=== PATIENT | male | born 1980 | race Asian ===

== ENCOUNTER 2020-05-07 10:38 | Outpatient (REF) | payer OTHER, SELFPAY ==
[2020-05-07 11:07] LABS: COVID-19 Test Negative (Negative)
== END 2020-05-07 10:39 | disposition home or self-care (01) ==
LOC: HO.LAB 10:38
PROVIDERS: Visit Provider Internal Medicine
DX: Z20.828 Contact with and (suspected) exposure to other viral communicable diseases (principal)
CPT/HCPCS: 87635

== ENCOUNTER 2020-06-04 11:35 | Outpatient (REF) | payer SELFPAY | END 2020-06-04 11:36 | disposition home or self-care (01) | LOC: HO.LAB 11:35 | PROVIDERS: Visit Provider Internal Medicine | DX: Z20.828 Contact with and (suspected) exposure to other viral communicable diseases (principal) | CPT/HCPCS: C9803; U0003 ==

== ENCOUNTER 2023-10-18 15:45 | Emergency (ER) | payer OTHER, SELFPAY ==
--- NOTE | ~2023-10-18 | XR_ITS ---
EXAMINATION: XR CHEST CLINICAL INFORMATION: Cough. COMPARISON: Chest radiograph dated 04/24/2016. TECHNIQUE: 2 views of the chest were obtained. FINDINGS: Heart is normal in size. The lungs are clear. There is no pleural effusion. No pneumothorax. No acute osseous abnormality. XR/XR chest 2V IMPRESSION: No acute cardiopulmonary disease.
[2023-10-18 15:57] VITALS: BP 137/94; PULSE 100; O2SAT 98
[2023-10-18 16:08] VITALS: BP 101/66; PULSE 101; RESP 20; TEMP 36.6; O2SAT 97; BMI 29.8
--- NOTE | 2023-10-18 16:08 | ED_ITS ---
HPI - General Adult General Chief complaint: Upper Respiratory Symptoms Stated complaint: flu-like symptoms x1day, feels saint x20 mins Time Seen by Provider: 10/18/23 18:21 Source: patient Mode of arrival: ambulatory Limitations: no limitations History of Present Illness HPI narrative: Patient is a 42 year old assigned male at with no reported medical history presenting to the emergency department today feeling generally unwell. Patient states that his daughter has been sick with influenza and today he began to feel unwell with a cough and sore throat. Patient denies any dizziness, lightheadedness, abdominal pain, nausea, vomiting, fever, chills, blurry vision, double vision, loss of vision, chest pain, difficulty breathing, shortness of breath, back pain, night sweats, pain with urination, increased urinary frequency, increased urinary urgency, blood in his urine or stool, syncope or a near syncopal episode, recent trauma or falls, bowel incontinence, bladder incontinence, bowel retention, bladder retention, or any other complaints at this time. Onset (ago): hour(s) Severity: mild Relieving factors: none Exacerbating factors: none Associated symptoms: cough Treatments prior to arrival: none Related Data Previous Rx's Medication Instructions Recorded famotidine 20 mg tablet 20 mg PO DAILY 7 days #7 tabs 02/17/21 prednisone 20 mg tablet 20 mg PO DAILY 9 days #18 tabs 02/17/21 oseltamivir 75 mg capsule (Tamiflu) 75 mg PO DAILY 5 days #5 caps 10/18/23 Allergies Allergy/AdvReac Type Severity Reaction Status Date / Time No Known Allergies Allergy Unverified 04/11/20 18:27 Review of Systems Constitutional: Constitutional: Reports no additional constitutional complaints, Denies chills, Denies fever(s) and Denies night sweats Eyes: Eyes: Reports no additional eye complaints, Denies blurry vision, Denies change in vision, Denies diplopia, Denies eye discharge, Denies loss of vision and Denies eye pain ENT: Denies dizziness and Reports sore throat Cardiovascular: Cardiovascular: Reports no additional cardiovascular complaints, Denies chest pain, Denies lightheadedness, Denies Loss of Consciousness and Denies dyspnea Respiratory: Respiratory: Reports no additional respiratory complaints, Reports cough and Denies dyspnea Gastrointestinal: Gastrointestinal: Reports no additional gastrointestinal complaints, Denies abdominal pain, Denies melena, Denies hematochezia, Denies change in bowel habits and Denies change in stool character Genitourinary: Genitourinary: Reports no additional male genitourinary complaints, Denies hematuria, Denies oliguria, Denies difficulty urinating, Denies dysuria, Denies urinary frequency, Denies urinary hesitancy, Denies urinary incontinence and Denies urinary urgency Musculoskeletal: Musculoskeletal: Reports no additional musculoskeletal complaints, Denies numbness and Denies tingling Neurologic: Denies dizziness, Denies loss of vision, Denies numbness and Denies tingling Psychiatric: Psychiatric: Reports no additional psychiatric complaints Endocrine: Endocrine: Reports no additional endocrine complaints Hematologic/Lymphatic: Hematologic/Lymphatic: Reports no additional hematologic/lymphatic complaints Allergic/Immunologic: Allergic/Immunologic: Reports no additional allergic/immunologic complaints PMFSH Past Medical History Attestation statement: The following information was validated with the patient. Source: old records reviewed and nursing notes reviewed Social History Social History Advance Directives: No Advance Directives Information Provided: No Physical Exam ED Vital Signs: Vital Signs - 24 hr 10/18/23 16:08 Temperature 97.9 F Pulse Rate 101 H Respiratory Rate 20 Blood Pressure 101/66 Pulse Oximetry 97 Oxygen Delivery Method Room Air BMI result Body Mass Index 29.8 Const General: cooperative, no acute distress, alert and awake Nutritional Appearance: well nourished Orientation/consciousness: patient oriented x3 Limitations: no limitations HENMT Head: Yes normal to inspection and Yes atraumatic Ears: hearing grossly normal bilaterally and external ears normal General nose exam: Normal external nose present, no nasal discharge noted and no epistaxis Face and sinus: Yes normal facial exam, No abrasion and No laceration Mouth: Normal oral and palatal mucosa present, no drooling and no muffled voice Eyes General: appearance normal, both eyes and all related structures Periorbital: periorbital findings normal Eyelids: Yes eyelids normal Conjunctivae: conjunctivae normal Pupils: Equal, round and reactive pupils present EOM: EOMs intact bilaterally Neck Neck: Yes normal visual inspection, Yes full ROM and Yes no lymphadenopathy Chest Chest palpation & inspection: normal inspection of the chest Resp Effort & Inspection: normal respiratory effort and able to speak in complete sentences GI Inspection: Yes normal to inspection Neuro General: patient oriented x3 and moves all extremities Cranial nerves: Yes Equal, round and reactive pupils present Cognition (Neuro): normal cognition Motor exam (neuro): 5/5 motor strength present throughout Sensory Exam: Normal double simultaneous stimulation for sensation Coordination: [id number] test normal Extrem General: Yes normal to inspection, Yes full ROM and Yes capillary refill normal Psych Appearance: grossly normal Mental Status: mental status grossly normal Affect: normal affect Attitude: cooperative Thought process: Normal thought process present Thought content: Normal thought content present Insight: Good insight present (Psych) Course Course Course Narrative: RME performed by Janet Green PA-C. Patient is a 42 year old assigned male at presenting to the emergency department feeling generally unwell. Daughter had influenza recently. Detailed physical exam and review of systems are deferred to the policy analyst. Imaging and swabs ordered. Patient placed back in the waiting room pending room availability and results. Medical Decision Making Medical Decision Making MDM Narrative: Patient is a 42 year old assigned male at with no reported medical history presenting to the emergency department today with a cough, sore throat, and feeling generally unwell. Patient's physical exam was unremarkable. Patient's COVID-19, RSV, and strep tests were negative. Patient's influenza test was positive. I explained my physical exam findings as well as all test results to the patient. I answered all questions asked by the patient. I stressed the importance of the patient taking his medication as prescribed. I stressed the importance of the patient following up with his primary care provider. I stressed the importance of the patient returning to the emergency department immediately if his symptoms were to worsen or if he were to develop any dizziness, shortness of breath, difficulty breathing, chest pain, blurry vision, loss of vision, nausea, vomiting, abdominal pain, fever, chills, back pain, or any other complaints. Patient verbalized agreement and understanding with this treatment plan and discharge. Differential Diagnosis Differential Diagnoses: The differential diagnosis associated with the presentation includes COVID-19 Influenza RSV Viral illness Admission/Observation Consideration of admission/observation: Escalation of care including admission/observation considered Patient would have been admitted to the hospital had his work up had any findings where hospital admission was appropriate and his clinical presentation warranted hospital admission. Lab Data [facility] Lab Attestation statement: I reviewed the patient's lab results. My interpretation of these results are in the [facility] Rationale portion of this note. Labs: Lab Results 10/18/23 Range/Units 17:17 Influenza Type A (PCR) NEGATIVE (Negative) Influenza Type B (PCR) POSITIVE A (Negative) RSV RNA Qual (PCR) NEGATIVE (Negative) SARS-CoV-2 RNA (RT-PCR) NEGATIVE (Negative) S. pyogenes GrpA MARCY Negative (Negative) Independent Historian Clinical information obtained from an independent historian. History obtained from or confirmed by: EMS (EMS provided additional history and confirmed the history provided by the patient.) Prescription Management I considered prescription management with: Antiviral (patient prescribed tamiflu) Discharge Plan Discharge Clinical Impression: Influenza Patient Disposition: Home, Self-Care Instructions: Influenza (DC) Additional Instructions: Follow up with your primary care provider. Return to the emergency department immediately if your symptoms worsen or if you develop any dizziness, shortness of breath, difficulty breathing, chest pain, blurry vision, loss of vision, nausea, vomiting, abdominal pain, fever, chills, back pain, or any other complaints. Prescriptions: New oseltamivir [Tamiflu] 75 mg capsule 75 mg PO DAILY 5 Days Qty: 5 0RF No Action prednisone 20 mg tablet 20 mg PO DAILY 9 Days Qty: 18 0RF Rx Instructions: 3 tabs/60mg for 3 days 2 tabs/40mg for 3 days 1 tab/20mg for 3 days famotidine 20 mg tablet 20 mg PO DAILY 7 Days Qty: 7 0RF Referrals: [facility] [[facility]] (Call to establish and follow up with a primary care provider. If you already have a primary care provider, please follow up with them.) [facility] [[facility]] (Call to establish and follow up with a primary care provider. If you already have a primary care provider, please follow up with them.) [facility] [Provider Group] (Call to establish and follow up with a primary care provider. If you already have a primary care provider, please follow up with them.) Discharge Date/Time: 10/18/23 18:33 Print Language: Welsh
[2023-10-18 17:46] LABS: IDNOW Serial# 08D9AD1C; Strep A Nucleic Acid Negative (Negative)
[2023-10-18 18:05] LABS: Influenza A PCR NEGATIVE (Negative); Influenza B PCR POSITIVE (Negative); Resp Syncy Virus RNA Qual PCR NEGATIVE (Negative); SARS COV2 PCR INHOUSE NEGATIVE (Negative)
--- NOTE | 2023-10-18 18:31 | PC.NURSE ---
PT REASSESSED IN TRIAGE FOR DISCHARGE, PT AGREES TO D/C PLAN
== END 2023-10-18 18:33 | disposition home or self-care (01) ==
LOC: HO.ED 18:29
PROVIDERS: Physician Assistant Medical; Emergency Provider Emergency Medicine Emergency Medical Services; PCP Physician Assistant
DX: J11.1 Influenza due to unidentified influenza virus with other respiratory manifestations (principal); Z11.52 Encounter for screening for COVID-19; Z20.828 Contact with and (suspected) exposure to other viral communicable diseases
CPT/HCPCS: 0241U; 71046; 87651; 99281; 99283

== ENCOUNTER 2024-03-11 21:00 | Emergency (ER) | payer MEDICAID, SELFPAY ==
--- NOTE | ~2024-03-11 | XR_ITS ---
EXAMINATION: XR HAND, LEFT CLINICAL INFORMATION: Swelling. COMPARISON: None available. TECHNIQUE: PA, lateral, and oblique views of the left hand. FINDINGS: Soft tissues are swollen at the hand. Bones are osteopenic. No fracture or malalignment. Joint spaces appear well-preserved. No radiodense foreign bodies. No subcutaneous gas. XR/XR hand LT min 3V IMPRESSION: Soft tissue swelling at the hand. No acute osseous findings.
[2024-03-11 21:01] VITALS: BP 126/90; PULSE 105; RESP 16; TEMP 37.4; O2SAT 97; BMI 29.9
--- NOTE | 2024-03-11 22:49 | ED_ITS ---
HPI - General Adult General Chief complaint: General Medical Stated complaint: ? insect bite left arm swollen and painful Time Seen by Provider: 03/11/24 22:49 Source: patient and RN notes reviewed Limitations: no limitations History of Present Illness HPI narrative: 43-year-old male presents for evaluation of left hand swelling, redness and itching. Patient states while he was doing some yard work, he felt something ?sting me? on his left hand. He was wearing gloves at the time. Patient states it is itchy, red and swollen. He has not tried any medication for this. No history of similar. He is right-hand dominant. He denies any fevers chills nausea or vomiting. Related Data Previous Rx's ?Medication ?Instructions ?Recorded cetirizine 10 mg tablet 10 mg PO DAILY #30 tabs 03/11/24 diphenhydramine HCl 25 mg tablet 25 mg PO TID PRN allergic reaction 03/11/24 #15 tabs famotidine 40 mg tablet 40 mg PO DAILY #5 tabs 03/11/24 prednisone 20 mg tablet 40 mg (2 x 20 mg) PO DAILY 5 days 03/11/24 #10 tabs Allergies Allergy/AdvReac Type Severity Reaction Status Date / Time No Known Allergies Allergy Verified 03/11/24 21:04 Review of Systems Review of Systems: Yes all other systems are reviewed and are negative Integumentary/Breasts: Skin/Breast: Reports erythema, Reports rash, Reports skin swelling and Denies sores Physical Exam ED Vital Signs: Vital Signs - 24 hr 03/11/24 21:01 Temperature 99.3 F Pulse Rate 105 H Respiratory Rate 16 Blood Pressure 126/90 H Pulse Oximetry 97 Oxygen Delivery Method Room Air BMI result Body Mass Index 29.9 Const General: alert, awake and Physically active Skin Other: There is erythema and edema to the dorsum of the left hand extending to the distal left forearm, dorsal aspect. There is no induration or streaking. No foreign body. Capillary refills less than 2 seconds. No vesicles Extrem Other: Brick Off Bearer is 5/5 bilaterally. Patient has been prone and supinate without difficulty. Motor and sensation is intact. Medical Decision Making Medical Decision Making MDM Narrative: 43-year-old male with redness, itching and swelling to the left hand after suspected insect sting. There is no airway compromise. No secondary signs of cellulitis at this time therefore hold on antibiotics. Suspect a localized reaction. There is no airway involvement. No evidence of trauma. X-ray is negative. Patient will be given prednisone, 1st dose now. Hold on Benadryl as the patient is driving. He feels comfortable with this plan of symptomatic treatment. I have had extensive discussion with the patient regarding signs of cellulitis, such as increased erythema, abscess formation, fevers, severe pain, or any other concerns to return immediately to the emergency department. Differential Diagnosis Differential Diagnoses: The differential diagnosis associated with the presentation includes Angioedema Allergic reaction Cellulitis Contusion Radiology Impression Discussion of test interpretation with radiology: I have reviewed the radiologist's reading. Radiologist Impression: [id number] [place] [address] XRay Report Signed Patient: Marina Bowie MR#: [id number] : 1980 Acct:[id number] Age/Sex: 43 / M ADM Date: 03/11/24 Loc: .ED Attending Dr: Ordering Physician: Generic ED Physician Date of Service: 03/11/24 Procedure(s): XR hand LT min 3V Accession Number(s): [id number] cc: Roosevelt Gagnon PA-C; Generic ED Physician~ EXAMINATION: XR HAND, LEFT CLINICAL INFORMATION: Swelling. COMPARISON: None available. TECHNIQUE: PA, lateral, and oblique views of the left hand. FINDINGS: Soft tissues are swollen at the hand. Bones are osteopenic. No fracture or malalignment. Joint spaces appear well-preserved. No radiodense foreign bodies. No subcutaneous gas. XR/XR hand LT min 3V IMPRESSION: Soft tissue swelling at the hand. No acute osseous findings. Dictated By: Merrill Funk MD Signed By: <Electronically signed by Merrill uFnk MD in OV> 03/11/242249 DD/ 34 TD/TT: Animal Bounty Hunter: NEDA Prescription Management I considered prescription management with: Pain Medication Discharge Plan Discharge Clinical Impression: Allergic reaction Qualifiers: Encounter type: initial encounter Qualified Code(s): T78.40XA - Allergy, unspecified, initial encounter Patient Disposition: Home, Self-Care Instructions: Insect Bite or Sting (ED), General Allergic Reaction (ED) Additional Instructions: Your symptoms are likely related to an insect sting or bite. Closely monitor for any worsening of symptoms, including development of cellulitis which would include severe pain, increased redness, red streaking up your arm, fevers or any other concern return immediately to the emergency department. Prednisone as directed. Benadryl as directed. Do not drive, drink alcohol or operate heavy machinery with this medication as it may make you drowsy. Alternatively you may use cetirizine as it should not make you drowsy. Follow-up with your primary care provider. Call this week to schedule a follow- up appointment. Return to the emergency department if you have any worsening of symptoms, or any concerns. Get well soon! Prescriptions: New famotidine 40 mg tablet 40 mg PO DAILY Qty: 5 0RF prednisone 20 mg tablet 40 mg PO DAILY 5 Days Qty: 10 0RF cetirizine 10 mg tablet 10 mg PO DAILY Qty: 30 0RF diphenhydramine HCl 25 mg tablet 25 mg PO TID PRN (Reason: allergic reaction) Qty: 15 0RF Discontinued oseltamivir [Tamiflu] 75 mg capsule 75 mg PO DAILY 5 Days Qty: 5 0RF prednisone 20 mg tablet 20 mg PO DAILY 9 Days Qty: 18 0RF Rx Instructions: 3 tabs/60mg for 3 days 2 tabs/40mg for 3 days 1 tab/20mg for 3 days famotidine 20 mg tablet 20 mg PO DAILY 7 Days Qty: 7 0RF Print Language: Swedish
[2024-03-11] MEDS: predniSONE 20 MG TABLET 60 MG PO (23:24)
[2024-03-11 23:45] VITALS: BP 120/83; PULSE 90; RESP 16; TEMP 37.2; O2SAT 97
[2024-03-11 23:46] VITALS: BP 120/83; PULSE 90; RESP 16; TEMP 37.2; O2SAT 97
== END 2024-03-11 23:47 | disposition home or self-care (01) ==
PROVIDERS: Emergency Provider Emergency Medicine; PCP Physician Assistant
DX: S60.562A Insect bite (nonvenomous) of left hand, initial encounter (principal); W57.XXXA Bitten or stung by nonvenomous insect and other nonvenomous arthropods, initial encounter; M79.642 Pain in left hand; Y93.H2 Activity, gardening and landscaping; Y92.017 Garden or yard in single-family (private) house as the place of occurrence of the external cause; Y99.9 Unspecified external cause status
CPT/HCPCS: 73130; 99283; 99284

== ENCOUNTER 2024-05-08 09:39 | Emergency (ER) | payer OTHER, MEDICAID, SELFPAY ==
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
[2024-05-08 09:42] VITALS: BP 127/84; PULSE 84; RESP 20; TEMP 37; O2SAT 100; BMI 28.1
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
--- NOTE | 2024-05-08 13:00 | PC.NURSE ---
pt awaiting the ct scan results and has been waiting for quite some time, provider was notified that he wants to discharge despite pending ct scans.
[2024-05-08 13:02] VITALS: BP 121/76; PULSE 88; RESP 18; TEMP 36.8; O2SAT 100
== END 2024-05-08 13:03 | disposition home or self-care (01) ==
PROVIDERS: Emergency Provider Emergency Medicine; PCP Physician Assistant
DX: S16.1XXA Strain of muscle, fascia and tendon at neck level, initial encounter (principal); R51.9 Headache, unspecified; M54.2 Cervicalgia; V43.52XA Car driver injured in collision with other type car in traffic accident, initial encounter; Y93.89 Activity, other specified; Y92.488 Other paved roadways as the place of occurrence of the external cause; Y99.8 Other external cause status
CPT/HCPCS: 70450; 72125; 99283; 99284

== ENCOUNTER 2025-02-18 15:07 | Emergency (ER) | payer OTHER, SELFPAY ==
--- NOTE | ~2025-02-18 | CT_ITS ---
CLINICAL HISTORY: upper gi bleed CT angiography abdomen and pelvis with contrast. 3-D post processing. Comparison: None provided Findings: Aorta, mesenteric/renal arteries, and iliofemoral systems are within normal limits. Bibasilar atelectatic changes, greater on right. Liver, adrenal glands, kidneys, pancreas, and gallbladder are unremarkable. Simple appearing cyst in the spleen. No splenomegaly. No free air or free fluid. Unremarkable urinary bladder. Mildly enlarged prostate gland. Nondistended stomach. Normal caliber small bowel. No small bowel obstruction. No pathologically enlarged lymph nodes. No acute appendicitis. No definite intraluminal contrast extravasation. No pathologically enlarged lymph nodes. No acute osseous abnormality. No lytic or sclerotic osseous lesions. Impression: 1. No acute findings identified in the abdomen or pelvis. 2. Specifically, no evidence to suggest acute gastrointestinal bleeding. If patient continues to have persistent or worsening symptoms or if there is high clinical degree of suspicion for GI bleeding, further evaluation with nuclear medicine tagged red blood cell GI bleed scan or evaluation with endoscopy or colonoscopy may be considered. Of note, study was somewhat limited due to absence of true arterial phase. 3. Additional chronic/nonacute findings as above. This document has been electronically signed by: Marcellus Apple MD on 02/18/2025 19:11:42
[2025-02-18 15:22] VITALS: BP 134/86; PULSE 96; RESP 16; TEMP 36.5; O2SAT 95; BMI 30.6
--- NOTE | 2025-02-18 15:25 | ED.ABDPAIN ---
HPI - Abdominal Pain General Chief Complaint: Nausea/Vomiting/Diarrhea Stated Complaint: V/N blood in vomit 2x Time Seen by Provider: 02/18/25 17:09 Source: patient Mode of arrival: ambulatory Limitations: no limitations History of Present Illness ED Provider: Dr. Rosy Pineda HPI narrative: Patient comes to the emergency room complaining of vomiting blood today. Patient denies any abdominal pain, complaining of nausea. Patient states that he feels very fatigued since this morning. Denies diarrhea, denies fever chills. Patient states that he has a specks of blood, no blood clots or actively vomiting blood. Eyes black stool or fresh red blood per rectum. Related Data Previous Rx's ?Medication ?Instructions ?Recorded cetirizine 10 mg tablet 10 mg PO DAILY #30 tabs 03/11/24 diphenhydramine HCl 25 mg tablet 25 mg PO TID PRN allergic reaction 03/11/24 #15 tabs famotidine 40 mg tablet 40 mg PO DAILY #5 tabs 03/11/24 prednisone 20 mg tablet 40 mg (2 x 20 mg) PO DAILY 5 days 03/11/24 #10 tabs omeprazole 20 mg capsule,delayed 20 mg PO DAILY #60 caps 02/18/25 release ondansetron HCl 4 mg tablet 4 mg PO Q6H PRN nausea and 02/18/25 vomiting #7 tabs Allergies Allergy/AdvReac Type Severity Reaction Status Date / Time No Known Allergies Allergy Verified 02/18/25 15:23 Review of Systems Review of Systems Constitutional : No Weight loss, No Fever, No Chills, No Night Sweats, No Fatigue, No Malaise ENT/Mouth : No Hearing loss, No Ear Pain, No Nasal Congestion, No Sinus Pain, No Hoarseness, No sore throat, No Rhinorrhea, No Swallowing Difficulty Eyes: No Eye Pain, No Swelling, No Redness, No Foreign Body, No Discharge, No Vision Changes Cardiovascular : No Chest Pain, No SOB, No Dyspnea on Exertion, No Orthopnea, No Edema, No Palpitations Respiratory : No Cough, No Sputum, No Wheezing, No Smoke Exposure, No Dyspnea Gastrointestinal : Complaining of nausea and vomiting blood, No Diarrhea, No Constipation, No abdominal Pain, No Hematochezia, No Melena Genitourinary : no irregular bleeding, No Dysuria, No Urinary Frequency, No Hematuria, No Urinary Incontinence, No Urgency, No Flank Pain, No Urinary Flow Changes, No Hesitancy Musculoskeletal : No joint pain, No Myalgias, No Joint Swelling Skin : No Skin Lesions, No rash Neuro : No Weakness, No Numbness, No Paresthesias, No Loss of Consciousness, No Dizziness, No Headache Psych : No Anxiety/Panic, No Depression, No SI/HI/AH/VH, No Social Issues, Heme/Lymph: No Bruising, No Bleeding,No Lymphadenopathy Endocrine : No Polyuria, No Polydipsia, No Temperature Intolerance Physical Exam ED Exam Exam: Appearance: Alert. Oriented X3. No acute distress. Eyes: Pupils equal, round and reactive to light. ENT: Pharynx normal. Neck: Normal inspection. Neck supple. No lymph nodes noted. No crepitus CVS: Normal heart rate and rhythm. Pulses normal. Normal S1 and S2 Respiratory: No respiratory distress. Breath sounds normal. No Wheezing. No rales Abdomen: Soft and nontender. No rigidity. No distention. For the digital rectal exam, patient requested a male provider, Dr. Wilson kindly did the digital rectal exam. Reports no external hemorrhoids, very small amount of stool in the rectum. Brown stool, no blood Skin: Skin warm and dry. Normal skin color. Normal skin turgor. Extremities: No lower extremity edema. No Lacerations. No Rash Neuro: Oriented X 3. No motor deficit. No sensory deficit. Moving all extremities. No slurred speech. CN 2 through 12 grossly intact Psych: calm, cooperative, normal affect Vital Signs: Vital Signs - 24 hr 02/18/25 15:22 02/18/25 16:48 02/18/25 19:09 Temperature 97.7 F 97.8 F 97.9 F Pulse Rate 96 98 84 Respiratory Rate 16 18 16 Blood Pressure 134/86 122/82 114/79 Pulse Oximetry 95 95 96 Oxygen Delivery Method Room Air Room Air 02/18/25 20:45 Temperature 97.9 F Pulse Rate 84 Respiratory Rate 16 Blood Pressure 114/79 Pulse Oximetry 96 Oxygen Delivery Method Room Air BMI result Body Mass Index 30.6 Course Course Course Narrative: RME: 44 yold male presents to the ED for vomitting blood without any abdominal pain. patient showed traige pics of emesis with blood. Patient denies any abdominal pain chest pain or shortness of breath. Patient states slight stroke team comfort from vomiting. Patient denies any history of alcohol abuse. Labs ordered Medical Decision Making Medical Decision Making [facility] Narrative: Patient receiving IV fluids, Zofran, Protonix. My interpretation of labs: No significant abnormality in patient's hematology and chemistry, INR normal, LFTs normal, lipase normal Patient denies using any alcohol or drugs. Patient guaiac test negative, CT scan does not show any acute abnormalities. After the above-mentioned medication, patient feels well, no abdominal pain, no nausea or vomiting. I discussed with the patient that the blood that he saw, was likely secondary to vomiting hard and worsening smaller blood vessels. At this time, no obvious signs of bleeding. Patient is hemodynamically stable Differential Diagnosis Differential Diagnoses: The differential diagnosis associated with the presentation includes (Gastritis, gastroenteritis, peptic ulcer, bowel perforation) Admission/Observation Consideration of admission/observation: Escalation of care including admission/observation considered (Given patient's presentation and history, observation was considered) Lab Data [facility] Lab Attestation statement: I reviewed the patient's lab results. 02/18/25 16:37 02/18/25 16:37 Labs: Lab Results 02/18/25 02/18/25 02/18/25 Range/Units 16:37 16:57 18:27 WBC 8.7 (4.8-10.8) X10*3/uL RBC 5.67 (4.60-5.80) X10*6/uL Hgb 16.0 (14.0-18.0) g/dl Hct 46.0 (42.0-52.0) % MCV 81.1 (80.0-98.0) fL MCH 28.2 (27.0-33.0) pg MCHC 34.8 (31.0-36.0) g/dl RDW 13.3 (11.0-16.0) % Plt Count 219 (160-400) X10*3/uL MPV 10.0 (9.4-12.4) fL Immature Gran % (Auto) 0.3 (0.0-0.4) % Neut % (Auto) 74.9 H (45-73) % Lymph % (Auto) 15.8 L (20-40) % [place] % (Auto) 7.5 (2-11) % Eos % (Auto) 1.3 (0-4) % Baso % (Auto) 0.2 (0-2) % Lymph # (Auto) 1.4 (1.2-4.9) X10*3/uL [place] # (Auto) 0.7 (0.1-1.2) X10*3/uL Eos # (Auto) 0.1 (0.0-0.4) X10*3/uL Baso # (Auto) 0.0 (0.0-0.2) X10*3/uL Abs Immat Gran (auto) 0.03 (0.00-0.03) X10*3/uL Absolute Neuts (auto) 6.5 (2.0-8.3) x10*3/uL Absolute Nucleated RBC 0.000 (0.0-0.012) X10*3/uL Nucleated RBC % (auto) 0.0 (0.0-0.2) /100WBC PT 12.4 (10.9-12.4) SEC INR 1.1 (0.9-1.1) APTT 31.7 (26.0-36.8) SEC Sodium 138 (135-145) mmol/L Potassium 3.9 (3.3-5.1) mmol/L Chloride 108 (96-108) mmol/L Carbon Dioxide 20 L (22-29) mmol/L Anion Gap 14 (12-20) BUN 9 (9-16) mg/dL Creatinine 0.77 (0.5-1.4) mg/dL Estim Creat Clear Calc 135.7 Estimated GFR > 60 Random Glucose 102 (60-115) mg/dL Calcium 8.9 (8.4-10.2) mg/dL Total Bilirubin 0.4 (0.0-1.0) mg/dL AST 26 (5-37) U/L ALT 30 (0-40) U/L Alkaline Phosphatase 84 (39-117) U/L Total Protein 8.0 (6.5-8.0) g/dL Albumin 4.7 (3.5-5.0) g/dL Lipase 29 (8-78) U/L Urine Color Yellow Urine Appearance Clear Urine pH 7.5 (5.0-9.0) Ur Specific [place] <= 1.005 (1.005-1.025) Urine Protein Negative (Neg-Trace) mg/dL Urine Glucose (UA) Negative (Negative) mg/dL Urine Ketones Negative (Negative) mg/dL Urine Blood Negative (Negative) Urine Nitrite Negative (Negative) Ur Leukocyte Esterase Negative (Negative) Urine RBC 0-2 (0-2) /HPF Urine WBC 0-5 (0-5) /HPF Ur Squamous Epith Cells 0-2 (0-2) /HPF Urine Bacteria None Seen (None Seen) Hyaline Casts 0-2 (0-2) /LPF Stool Occult Blood NEGATIVE (NEGATIVE) Independent Interpretation I performed an independent interpretation of an: CT Scan Radiology Impression Discussion of test interpretation with radiology: I have reviewed the radiologist's reading. Radiologist Impression: Aorta, mesenteric/renal arteries, and iliofemoral systems are within normal limits. Bibasilar atelectatic changes, greater on right. Liver, adrenal glands, kidneys, pancreas, and gallbladder are unremarkable. Simple appearing cyst in the spleen. No splenomegaly. No free air or free fluid. Unremarkable urinary bladder. Mildly enlarged prostate gland. Nondistended stomach. Normal caliber small bowel. No small bowel obstruction. No pathologically enlarged lymph nodes. No acute appendicitis. No definite intraluminal contrast extravasation. No pathologically enlarged lymph nodes. No acute osseous abnormality. No lytic or sclerotic osseous lesions. Impression: 1. No acute findings identified in the abdomen or pelvis. 2. Specifically, no evidence to suggest acute gastrointestinal bleeding. If patient continues to have persistent or worsening symptoms or if there is high clinical degree of suspicion for GI bleeding, further evaluation with nuclear medicine tagged red blood cell GI bleed scan or evaluation with endoscopy or colonoscopy may be considered. Of note, study was somewhat limited due to absence of true arterial phase. 3. Additional chronic/nonacute findings as above. Independent Historian Clinical information obtained from an independent historian. History obtained from or confirmed by: Spouse Medications Administered Discontinued Medications Generic Name Dose Route Start Last Admin Trade Name Freq PRN Reason Stop Dose Admin Sodium Chloride 1,000 mls @ 999 mls/hr 02/18/25 17:28 02/18/25 20:38 Ns IVCONT 02/18/25 18:28 Infused .Q1H1M ONE Infusion Iohexol 85 ml 02/18/25 18:16 02/18/25 18:17 Iohexol 350 Mg/Ml 100 Ml Infus..Btl IV 02/18/25 18:17 85 ml ONCE ONE Administration Ondansetron HCl 4 mg 02/18/25 17:28 02/18/25 17:45 Ondansetron Hcl 4 Mg/2 Ml Vial IVPUSH 02/18/25 17:29 4 mg ONCE ONE Administration Pantoprazole Sodium 80 mg 02/18/25 17:25 02/18/25 17:47 Pantoprazole Sodium 40 Mg/10 Ml Vial IVPUSH 02/18/25 17:26 80 mg ONCE ONE Administration Critical Care Time Critical Care Time Critical Care Time: Yes Total Critical Care Time: 40 Attestation: I have personally provided critical care time. Time includes review of lab data, radiology results, discussion with consultants, and monitoring for potential decompensation. Intervention performed as documented. Discharge Plan Discharge Clinical Impression: Gastritis, Hematemesis of unknown cause Patient Disposition: Home, Self-Care Instructions: Gastritis (ED) Additional Instructions: Please follow-up with your primary care physician tomorrow. If you have any worsening or new symptoms, please return to the emergency room or call 911 Prescriptions: New omeprazole 20 mg capsule,delayed release(DR/EC) 20 mg PO DAILY Qty: 60 0RF ondansetron HCl 4 mg tablet 4 mg PO Q6H PRN (Reason: nausea and vomiting) Qty: 7 0RF No Action famotidine 40 mg tablet 40 mg PO DAILY Qty: 5 0RF prednisone 20 mg tablet 40 mg PO DAILY 5 Days Qty: 10 0RF cetirizine 10 mg tablet 10 mg PO DAILY Qty: 30 0RF diphenhydramine HCl 25 mg tablet 25 mg PO TID PRN (Reason: allergic reaction) Qty: 15 0RF Stand Alone Forms: Work/School Release Interventions: ED Discharge Assessment Last Done: 02/18/25 20:45 Discharge Date/Time: 02/18/25 20:45 Print Language: Tajik
[2025-02-18 16:47] LABS: MANUAL DIFF FLAG NO
[2025-02-18 16:48] VITALS: BP 122/82; PULSE 98; RESP 18; TEMP 36.6; O2SAT 95
[2025-02-18 16:48] LABS: Hematocrit 46.0 % (42.0-52.0); Hemoglobin 16.0 g/dl (14.0-18.0); Imm Gran Abs Auto 0.03 X10*3/uL (0.00-0.03); Imm Gran Pct Auto 0.3 % (0.0-0.4); Lymphocytes Absolute Auto 1.4 X10*3/uL (1.2-4.9); Mean Corpuscular HGB Conc 34.8 g/dl (31.0-36.0); Mean Corpuscular Hemoglobin 28.2 pg (27.0-33.0); Mean Corpuscular Volume 81.1 fL (80.0-98.0); NRBC Abs Auto 0.000 X10*3/uL (0.0-0.012); NRBC Pct Auto 0.0 /100WBC (0.0-0.2); Platelet Count 219 X10*3/uL (160-400); Red Blood Count 5.67 X10*6/uL (4.60-5.80); White Blood Count 8.7 X10*3/uL (4.8-10.8)
[2025-02-18 16:52] LABS: INTERNATIONAL NORM RATIO 1.1 (0.9-1.1); Prothrombin Time 12.4 SEC (10.9-12.4)
[2025-02-18 16:55] LABS: Partial Thromboplastin Time 31.7 SEC (26.0-36.8)
--- OUTSIDE RECORDS SUMMARY | 2025-02-18 16:56 | XMS_ITS ---
Author Name [facility] Organization Unknown Care Team Organization Name Specialty Phone Email Start Date End Da te [facility] 06/02/2022 03/13/2024
[2025-02-18 17:00] LABS: Alanine Aminotransferase 30 U/L (0-40); Albumin Level 4.7 g/dL (3.5-5.0); Alkaline Phosphatase 84 U/L (39-117); Anion Gap 14 (12-20); Aspartate Amino Transferase 26 U/L (5-37); Blood Urea Nitrogen 9 mg/dL (9-16); Calcium 8.9 mg/dL (8.4-10.2); Carbon Dioxide 20 mmol/L (22-29); Chloride 108 mmol/L (96-108); Creatinine Clr Calc Pharmacy 135.7; Estimated Glomerular Filt Rate > 60; Lipase 29 U/L (8-78); Potassium 3.9 mmol/L (3.3-5.1); Sodium 138 mmol/L (135-145); Total Protein 8.0 g/dL (6.5-8.0)
[2025-02-18 17:16] LABS: Appearance Urine Clear; Glucose Urine UA Negative (Negative); PH 7.5 (5.0-9.0); Specific Gravity - Urine <= 1.005 (1.005-1.025)
[2025-02-18] MEDS: iohexoL 350 MG/ML 100 ML INFUS..BTL 85 ML IV (18:17)
[2025-02-18 18:31] LABS: OBS Int Ctl Valid YES
[2025-02-18 18:33] LABS: OBS1 NEGATIVE (NEGATIVE)
[2025-02-18 19:09] VITALS: BP 114/79; PULSE 84; RESP 16; TEMP 36.6; O2SAT 96
[2025-02-18 20:45] VITALS: BP 114/79; PULSE 84; RESP 16; TEMP 36.6; O2SAT 96
== END 2025-02-18 20:45 | disposition home or self-care (01) ==
PROVIDERS: Physician Assistant; Emergency Provider Emergency Medicine; PCP Physician Assistant
DX: K29.70 Gastritis, unspecified, without bleeding (principal); R11.2 Nausea with vomiting, unspecified; Z79.899 Other long term (current) drug therapy
CPT/HCPCS: 36415; 74178; 80053; 81001; 82272; 83690; 85025; 85610; 85730; 96361; 96374; 96375; 99284; J2405; J2470; Q9967

== ENCOUNTER → 2025-02-18 17:25 | Outpatient (BNV) | payer SELFPAY | PROVIDERS: Emergency Provider Emergency Medicine; PCP Physician Assistant; Visit Provider Radiology Diagnostic Radiology | DX: K92.2 Gastrointestinal hemorrhage, unspecified (principal) | CPT/HCPCS: 74178 ==

== ENCOUNTER 2025-07-11 15:14 | Emergency (ER) | payer OTHER, SELFPAY ==
--- NOTE | ~2025-07-11 | XR_ITS ---
EXAMINATION: XR CHEST CLINICAL INFORMATION: cough COMPARISON: October 18, 2023 TECHNIQUE: Frontal view of the chest was obtained. FINDINGS: No significant abnormality is noted involving the heart, lungs, mediastinum, bony thorax or soft tissues. XR/XR chest 1V IMPRESSION: No acute disease Electronically signed by: Kyle Cagle MD 07/11/2025 03:34 PM [facility]
--- NOTE | 2025-07-11 15:18 | ECG_ITS ---
Test Reason : fatigue Blood Pressure : */* mmHG Vent. Rate : 90 BPM Atrial Rate : 90 BPM P-R Int : 162 ms QRS Dur : 86 ms QT Int : 352 ms P-R-T Axes : 38 5 10 degrees QTcB Int : 430 ms Poor data quality, interpretation may be adversely affected Normal sinus rhythm Normal ECG No previous ECGs available Referred By: Generic ED Physician Electronically Signed By: Servando Diamond
[2025-07-11 15:26] VITALS: BP 120/70; PULSE 85; O2SAT 95
[2025-07-11 15:30] VITALS: BMI 30.4
[2025-07-11 16:33] VITALS: BP 107/71; BP 111/69; PULSE 104; PULSE 88; RESP 14; O2SAT 98
[2025-07-11 16:34] VITALS: BP 114/89; BP 123/85; PULSE 102; PULSE 105
[2025-07-11 16:45] LABS: Alanine Aminotransferase 27 U/L (0-40); Albumin Level 4.2 g/dL (3.5-5.0); Alkaline Phosphatase 86 U/L (39-117); Anion Gap 13 (12-20); Aspartate Amino Transferase 25 U/L (5-37); Blood Urea Nitrogen 13 mg/dL (9-16); Calcium 8.5 mg/dL (8.4-10.2); Carbon Dioxide 20 mmol/L (22-29); Chloride 109 mmol/L (96-108); Creatinine Clr Calc Pharmacy 131.8; Estimated Glomerular Filt Rate > 60; Magnesium 2.1 mg/dL (1.6-2.6); Potassium 3.7 mmol/L (3.3-5.1); Sodium 138 mmol/L (135-145); Total Protein 7.2 g/dL (6.5-8.0)
[2025-07-11] MEDS: Lactated Ringers 1,000 ML 999 ML IV (16:50)
[2025-07-11 16:58] LABS: Troponin-I High Sensitivity < 2.7 ng/L (<3.5-35.0)
[2025-07-11 17:09] LABS: Resp Syncy Virus RNA Qual PCR NEGATIVE (Negative); SARS COV2 PCR INHOUSE NEGATIVE (Negative)
[2025-07-11 17:38] LABS: Hematocrit 47.8 % (42.0-52.0); Hemoglobin 15.8 g/dl (14.0-18.0); Imm Gran Abs Auto 0.06 X10*3/uL (0.00-0.03); Imm Gran Pct Auto 0.6 % (0.0-0.4); Lymphocytes Absolute Auto 1.9 X10*3/uL (1.2-4.9); Mean Corpuscular HGB Conc 33.1 g/dl (31.0-36.0); Mean Corpuscular Hemoglobin 27.6 pg (27.0-33.0); Mean Corpuscular Volume 83.6 fL (80.0-98.0); NRBC Abs Auto 0.000 X10*3/uL (0.0-0.012); NRBC Pct Auto 0.0 /100WBC (0.0-0.2); Platelet Count 212 X10*3/uL (160-400); Red Blood Count 5.72 X10*6/uL (4.60-5.80); White Blood Count 10.7 X10*3/uL (4.8-10.8)
[2025-07-11 17:46] LABS: D Dimer High Sensitivity 223 NG/ML
--- NOTE | 2025-07-11 17:56 | ED.GENADULT ---
HPI - General Adult General Chief complaint: Syncope Stated complaint: fever,cough,became unresponsive 4-5 mins bp 89/50 Time Seen by Provider: 07/11/25 16:03 Source: patient, RN notes reviewed and old records reviewed Mode of arrival: EMS Limitations: no limitations History of Present Illness ED Provider: Shonda ALLEN narrative: 44-year-old male who denies any past medical history presents for evaluation of a syncopal episode. He reports that he was sitting in a chair getting his hair cut at the [facility]. He apparently had an episode of unresponsiveness that lasted about 5 minutes. The patient reports that he felt well throughout the day and up into that point. He denies any chest pain, shortness of breath, lightheadedness, palpitations. He does admit to some dry cough over last 2 days. He denies any fevers or chills. He has never had an episode like this in the past Related Data Previous Rx's ?Medication ?Instructions ?Recorded cetirizine 10 mg tablet 10 mg PO DAILY #30 tabs 03/11/24 diphenhydramine HCl 25 mg tablet 25 mg PO TID PRN allergic reaction 03/11/24 #15 tabs famotidine 40 mg tablet 40 mg PO DAILY #5 tabs 03/11/24 prednisone 20 mg tablet 40 mg (2 x 20 mg) PO DAILY 5 days 03/11/24 #10 tabs omeprazole 20 mg capsule,delayed 20 mg PO DAILY #60 caps 02/18/25 release ondansetron HCl 4 mg tablet 4 mg PO Q6H PRN nausea and 02/18/25 vomiting #7 tabs Allergies Allergy/AdvReac Type Severity Reaction Status Date / Time No Known Allergies Allergy Verified 07/11/25 15:58 Review of Systems Constitutional: Constitutional: Denies body ache(s), Denies chills, Denies fever(s) and Denies frequent falls Eyes: Eyes: Denies blurry vision ENT: Denies vertigo and Denies dizziness Cardiovascular: Cardiovascular: Denies chest pain, Reports syncope, Denies rapid heart rate, Denies leg edema, Denies lightheadedness and Denies palpitations Gastrointestinal: Gastrointestinal: Denies abdominal pain, Denies nausea and Denies vomiting Musculoskeletal: Musculoskeletal: Denies back pain Integumentary/Breasts: Skin/Breast: Denies rash Neurologic: Denies vertigo, Denies dizziness, Reports syncope and Denies frequent falls Psychiatric: Psychiatric: Denies anxiety Endocrine: Endocrine: Denies palpitations PMFSH Social History Social History Advance Directives: No Advance Directives Information Provided: Yes Physical Exam ED Vital Signs: Vital Signs - 24 hr 07/11/25 16:33 07/11/25 16:33 07/11/25 16:34 Temperature Pulse Rate 88 104 H 105 H Respiratory Rate 14 Blood Pressure 107/71 111/69 114/89 Pulse Oximetry 98 Oxygen Delivery Method Room Air 07/11/25 16:34 07/11/25 18:13 07/11/25 18:19 Temperature 97.9 F 98.2 F Pulse Rate 102 H 98 93 Respiratory Rate 18 16 Blood Pressure 123/85 123/85 125/80 Pulse Oximetry 97 98 Oxygen Delivery Method Room Air Room Air BMI result Body Mass Index 30.4 Const General: healthy appearing, comfortable, no acute distress, alert and awake Nutritional Appearance: well nourished Orientation/consciousness: patient oriented x3 HENMT Head: Yes normocephalic and Yes atraumatic Eyes Eyelids: Yes eyelids normal Conjunctivae: conjunctivae normal Sclerae: sclerae normal Corneas: corneas normal Pupils: Equal, round and reactive pupils present EOM: EOMs intact bilaterally Neck Neck: Yes full ROM Resp Effort & Inspection: normal respiratory effort, able to speak in complete sentences, no audible wheezes and not labored Auscultation: clear to auscultation bilaterally Cardio Rate: regular rate Rhythm: regular rhythm GI Inspection: No distended Palpation (GI): Soft to palpation, not firm, nontender, no guarding and not rigid Skin General skin exam: no rashes or lesions noted and elasticity normal Neuro General: patient oriented x3 Cranial nerves: Yes Equal, round and reactive pupils present and Yes Bilaterally intact EOM present Cognition (Neuro): normal cognition Extrem Other: Moving all extremities well without any obvious deformities Course Reevaluation(s) Reevaluation #1: Patient's workup largely unremarkable. Including his labs, chest x-ray, viral swabs and EKG. He never had any chest pain, in his nonischemic EKG. He may have had a vasovagal episode while in the [employer] chair. Given his age I feel is appropriate to refer him to cardiology for an outpatient workup to evaluate for cardiomyopathy plus or minus a stress test. He was given strict return precautions Medications Administered Discontinued Medications Generic Name Dose Route Start Last Admin Trade Name Jose C PRN Reason Stop Dose Admin Lactated Ringer's 1,000 mls @ 999 mls/hr 07/11/25 16:30 07/11/25 18:18 Lr IV 07/11/25 17:30 Infused .Q1H1M ANDREA Infusion Medical Decision Making Medical Decision Making [facility] Narrative: 44-year-old male who denies any past medical history presents for evaluation of a syncopal episode. He has had a dry cough for the last 2 days but denies any fevers or chills to me. He reports feeling better already. Denies any chest pain, palpitations, shortness of breath. His labs show no leukocytosis or anemia. He does have a slight left shift which could be related to a viral illness causing his cough and possible syncopal episode.. He has no significant chemistry abnormalities warranting dimension. Troponin is negative. His EKG is normal sinus rhythm with a rate of [address] segment elevation or depressions to suggest ischemic cause of his syncope. I did order a D-dimer which was within normal limits at 223. He has no risk factors for PE. He is not hypoxic. No chest pain, back pain or abdominal pain to suggest AAA or aortic dissection Differential Diagnosis Differential Diagnoses: The differential diagnosis associated with the presentation includes Vasovagal syncope Orthostasis Dehydration Arrhythmia PE Admission/Observation Consideration of admission/observation: Escalation of care including admission/observation considered Lab Data [facility] Lab Attestation statement: I reviewed the patient's lab results. As above 07/11/25 17:27 07/11/25 16:19 Labs: Lab Results 07/11/25 07/11/25 Range/Units 16:19 17:27 WBC 10.7 (4.8-10.8) X10*3/uL RBC 5.72 (4.60-5.80) X10*6/uL Hgb 15.8 (14.0-18.0) g/dl Hct 47.8 (42.0-52.0) % MCV 83.6 (80.0-98.0) fL MCH 27.6 (27.0-33.0) pg MCHC 33.1 (31.0-36.0) g/dl RDW 13.0 (11.0-16.0) % Plt Count 212 (160-400) X10*3/uL MPV 10.3 (9.4-12.4) fL Immature Gran % (Auto) 0.6 H (0.0-0.4) % Neut % (Auto) 74.1 H (45-73) % Lymph % (Auto) 17.6 L (20-40) % [place] % (Auto) 5.7 (2-11) % Eos % (Auto) 1.7 (0-4) % Baso % (Auto) 0.3 (0-2) % Lymph # (Auto) 1.9 (1.2-4.9) X10*3/uL [place] # (Auto) 0.6 (0.1-1.2) X10*3/uL Eos # (Auto) 0.2 (0.0-0.4) X10*3/uL Baso # (Auto) 0.0 (0.0-0.2) X10*3/uL Abs Immat Gran (auto) 0.06 H (0.00-0.03) X10*3/uL Absolute Neuts (auto) 8.0 (2.0-8.3) x10*3/uL Absolute Nucleated RBC 0.000 (0.0-0.012) X10*3/uL Nucleated RBC % (auto) 0.0 (0.0-0.2) /100WBC D-Dimer High Sensitivty 223 NG/ML Sodium 138 (135-145) mmol/L Potassium 3.7 (3.3-5.1) mmol/L Chloride 109 H (96-108) mmol/L Carbon Dioxide 20 L (22-29) mmol/L Anion Gap 13 (12-20) BUN 13 (9-16) mg/dL Creatinine 0.79 (0.5-1.4) mg/dL Estim Creat Clear Calc 131.8 Estimated GFR > 60 Random Glucose 102 (60-115) mg/dL Calcium 8.5 (8.4-10.2) mg/dL Magnesium 2.1 (1.6-2.6) mg/dL Total Bilirubin 0.3 (0.0-1.0) mg/dL AST 25 (5-37) U/L ALT 27 (0-40) U/L Alkaline Phosphatase 86 (39-117) U/L Troponin I High Sens < 2.7 (<3.5-35.0) ng/L Total Protein 7.2 (6.5-8.0) g/dL Albumin 4.2 (3.5-5.0) g/dL Influenza Type A (PCR) NEGATIVE (Negative) Influenza Type B (PCR) NEGATIVE (Negative) RSV RNA Qual (PCR) NEGATIVE (Negative) SARS-CoV-2 RNA (RT-PCR) NEGATIVE (Negative) Independent Interpretation I performed an independent interpretation of an: EKG Discharge Plan Discharge Clinical Impression: Syncope Patient Disposition: Home, Self-Care Instructions: Syncope (ED) Additional Instructions: Your workup in the ER today was reassuring. I did not find anything to explain why you passed out pain The your workup today was largely reassuring. This includes your EKG, blood work, chest x-ray. I recommend that you follow up with the cardiology, call tomorrow to make an appointment. Return for any new or worsening symptoms Prescriptions: No Action famotidine 40 mg tablet 40 mg PO DAILY Qty: 5 0RF prednisone 20 mg tablet 40 mg PO DAILY 5 Days Qty: 10 0RF cetirizine 10 mg tablet 10 mg PO DAILY Qty: 30 0RF diphenhydramine HCl 25 mg tablet 25 mg PO TID PRN (Reason: allergic reaction) Qty: 15 0RF omeprazole 20 mg capsule,delayed release(DR/EC) 20 mg PO DAILY Qty: 60 0RF ondansetron HCl 4 mg tablet 4 mg PO Q6H PRN (Reason: nausea and vomiting) Qty: 7 0RF Referrals: [facility] [place] [place] [facility] [Provider Group] Referral Note: syncope Interventions: ED Discharge Assessment Last Done: 07/11/25 18:19 Discharge Date/Time: 07/11/25 18:19 Print Language: Mongolian
[2025-07-11 18:00] LABS: MANUAL DIFF FLAG NO
[2025-07-11 18:13] VITALS: BP 123/85; PULSE 98; RESP 18; TEMP 36.6; O2SAT 97
[2025-07-11 18:19] VITALS: BP 125/80; PULSE 93; RESP 16; TEMP 36.8; O2SAT 98
== END 2025-07-11 18:19 | disposition home or self-care (01) ==
PROVIDERS: Physician Assistant; Physician Assistant Medical; Emergency Provider Emergency Medicine; PCP Physician Assistant
DX: R55 Syncope and collapse (principal); R50.9 Fever, unspecified; R05.9 Cough, unspecified; Z03.818 Encounter for observation for suspected exposure to other biological agents ruled out
CPT/HCPCS: 36415; 71045; 80053; 83735; 84484; 85025; 85379; 87637; 93005; 96360; 99284; J7120

== ENCOUNTER → 2025-07-11 15:18 | Outpatient (BNV) | payer SELFPAY | PROVIDERS: Emergency Provider Emergency Medicine; PCP Physician Assistant; Visit Provider Internal Medicine Cardiovascular Disease | DX: R55 Syncope and collapse (principal) | CPT/HCPCS: 93010 ==

== ENCOUNTER → 2025-07-11 15:22 | Outpatient (BNV) | payer SELFPAY | PROVIDERS: Visit Provider Radiology Diagnostic Radiology | DX: R05.9 Cough, unspecified (principal) | CPT/HCPCS: 71045 ==